=== PATIENT | female | born 1990 ===

== ENCOUNTER 2019-11-12 11:38 | Emergency (ER) | payer OTHER ==
[~2019-11-12] VITALS: Ht 170.2 cm; Wt 63.5 kg
[2019-11-12] MEDS ORDERED: OB COMPLETE WI1 EACH PO (12:20)
[2019-11-12] MEDS ORDERED: ZITHROMAX500 MG PO (14:41)
== END 2019-11-12 16:17 | disposition home or self-care (01) ==
LOC: ER 11:38
DX: O98.512 Other viral diseases complicating pregnancy, second trimester (principal); B96.0 Mycoplasma pneumoniae [M. pneumoniae] as the cause of diseases classified elsewhere